=== PATIENT | female | born 1985 ===

== ENCOUNTER → 2020-11-04 08:15 | Outpatient (CLI) | payer OTHER, BC, SELFPAY ==
[2020-11-04 08:51] LABS: COVID19 -Nasal RAPID Negative (Negative)
== END ==
PROVIDERS: Family Provider Internal Medicine Geriatric Medicine; PCP Internal Medicine Geriatric Medicine; Visit Provider Physician Assistant
DX: Z03.818 Encounter for observation for suspected exposure to other biological agents ruled out (principal)
CPT/HCPCS: 87635

== ENCOUNTER → 2020-12-02 12:54 | Outpatient (CLI) | payer OTHER, BC, SELFPAY ==
[2020-12-02] MEDS: COVID-19 VACC(MODERNA-1)/PF 100 MCG/0.5 ML VIAL IM (13:01)
== END ==
PROVIDERS: Family Provider Internal Medicine Geriatric Medicine; PCP Internal Medicine Geriatric Medicine; Visit Provider Internal Medicine
DX: Z23 Encounter for immunization (principal)
CPT/HCPCS: 0011A; 91301

== ENCOUNTER → 2020-12-30 12:32 | Outpatient (CLI) | payer OTHER, BC, SELFPAY ==
[2020-12-30] MEDS: COVID-19 VACC #2, MRNA(MOD) 100 MCG/0.5 ML VIAL IM (12:40)
[2020-12-30] MEDS: diphenhydrAMINE 25 MG TABLET 50 MG PO (13:00)
== END ==
PROVIDERS: PCP Internal Medicine Geriatric Medicine; Visit Provider Internal Medicine
DX: Z23 Encounter for immunization (principal)
CPT/HCPCS: 0012A; 91301

== ENCOUNTER → 2021-07-18 09:56 | Outpatient (CLI) | payer OTHER, BC, SELFPAY ==
[2021-07-18 12:13] LABS: COVID19 -Nasal RAPID Negative (Negative)
== END ==
PROVIDERS: PCP Internal Medicine Geriatric Medicine; Visit Provider Nurse Practitioner
DX: Z20.822 Contact with and (suspected) exposure to COVID-19 (principal); J02.9 Acute pharyngitis, unspecified; R09.81 Nasal congestion
CPT/HCPCS: 87635

== ENCOUNTER → 2021-11-07 13:59 | Outpatient (CLI) | payer OTHER, BC, SELFPAY ==
[2021-11-07 18:32] LABS: COVID19 -Nasal RAPID Negative (Negative)
== END ==
PROVIDERS: PCP Internal Medicine Geriatric Medicine; Visit Provider Nurse Practitioner Family
DX: Z20.822 Contact with and (suspected) exposure to COVID-19 (principal); J02.9 Acute pharyngitis, unspecified; R05.9 Cough, unspecified; R53.83 Other fatigue
CPT/HCPCS: 87635